=== PATIENT | male | born 1955 | race Caucasian/White ===

== ENCOUNTER 2019-08-05 04:13 | Emergency (ER) | payer MEDICARE ==
[~2019-08-05] VITALS: Ht 177.8 cm; Wt 109.1 kg
[2019-08-05] MEDS ORDERED: TRAV04OPD OP (04:26)
[2019-08-05] MEDS ORDERED: TIMOXEOPD OD (04:26)
[2019-08-05] MEDS ORDERED: METF500T13 PO (04:26)
[2019-08-05] MEDS ORDERED: BYST10TA2 PO (04:26)
[2019-08-05] MEDS ORDERED: NS 1,000 ML IV SCH (04:41)
[2019-08-05] MEDS ORDERED: ONDANSETRON 4MG/2ML VIAL (J2405) IV ONE (04:45)
[2019-08-05] MEDS ORDERED: propofoL 200 MG/20 ML VIAL IV PRN (04:45)
[2019-08-05] MEDS ORDERED: KETAMINE HCL 200 MG/20 ML VIAL IV ONE (04:45)
[2019-08-05] MEDS ORDERED: PROPOFOL 1,000 MG/100 ML VIAL As Ordered ONE (04:51)
[2019-08-05] MEDS ORDERED: MORPHINE 4 MG/ML 1ML VIAL/SYRINGE (J2270) As Ordered ONE (06:15)
[2019-08-05] MEDS ORDERED: MORPHINE 4 MG/ML 1ML VIAL/SYRINGE (J2270) IV PRN (06:15)
[2019-08-05 06:29] VITALS: BP 158/87
[2019-08-05] MEDS ORDERED: PERC5TAB12 PO (07:13)
--- NOTE | 2019-08-05 10:31 | REP ---
RIGHT SHOULDER, COMPLETE: 08/05/2019. Clinical history: Shoulder pain and suspected dislocation clinically. Findings: Anterior inferior dislocation noted on all three views involving femoral head and glenoid. I do not see evidence of a fracture of the humeral head, scapula, clavicle or ribs. There are degenerative changes of the inferior margin of the glenohumeral joint, AC joint and a peripheral acromial spur. Impression: 1. Anterior inferior dislocation of the humerus without visible fracture. Electronically Signed by Art Jimenez MD 08/05/2019 08:20 P
--- NOTE | 2019-08-05 10:31 | REP ---
AP PORTABLE RIGHT SHOULDER: 08/05/2019. Clinical history: Post reduction. Findings: Portable AP and axillary views were obtained. These show a location of the humeral head to the glenoid fossa. Spurring at the AC and glenohumeral joint noted. No fracture. Electronically Signed by Art Jimenez MD 08/05/2019 08:20 P
--- NOTE | 2019-08-06 10:27 | ER ---
DATE OF CONSULTATION: 08/05/2019 CHIEF COMPLAINT: Right shoulder pain. The patient was sent to the emergency room (ER) as a transfer from [facility] complaining of right shoulder pain. He states that he was in [place] when he tripped downstairs and immediately appreciated right shoulder pain, inability to move, that is sharp located globally, right shoulder 10/10, made worse with movement and improved with mobilization. He denies any pain elsewhere, any numbness, tingling, fevers or chills, nausea or vomiting. Stated that he did not want to the hospital in [place]. [place] [facility] where they attempted sedation and closed reduction, were unsuccessful and transferred to [place] subsequently. Denies any fevers, chills, nausea or vomiting. A complete 10-system review was conducted and pertinent positive and negatives in the history of present illness (HPI). All other systems negative. PAST MEDICAL HISTORY: High blood pressure, diabetes, and glaucoma. MEDICATIONS: Bystolic, metformin, atorvastatin, and eye drops. PAST SURGICAL HISTORY: Left knee surgery in 1974, cataract surgery, and hernia surgery. ALLERGIES: PENICILLIN, gets a rash. Denies smoking, was a former smoker. Denies any illicit drug use, and states he is a social drinker. PHYSICAL EXAMINATION: The patient is awake, alert, and oriented, well-dressed. Appropriate affect. Breathing unlabored on room air. Normocephalic and atraumatic. Right upper extremity: Gross deformity to the right shoulder with significant bruising and swelling. Skin intact. Significant ecchymosis. Radial pulses 2+, regular rate. Positive anterior interosseous nerve (AIN), posterior interosseous nerve (PIN) and ulnar motor function. Sensation intact to light touch in superficial sensory branch, radial nerve, median nerve, ulnar nerve, and axillary nerve. No tenderness to palpation about the elbow or wrist or fingers. Left upper extremity: No tenderness to palpation. Full range of motion of shoulder, wrist, and elbow without any pain or discomfort. Skin is intact. Radial pulses 2+ and regular rate. Sensation intact to light touch in superficial sensory branch, radial nerve, median nerve, and ulnar nerve. Positive AIN/PIN and ulnar motor function. Bilateral lower extremities: No tenderness to palpation. Full active range of motion of the hips, knees, and feet. Skin intact. Posterior tibial pulses +2, regular rate. Positive EHL, FHL, tib, gastroc and motor function. Sensation intact to light touch to superficial peroneal, deep peroneal, saphenous, and tibial distributions Imaging reviewed. Right shoulder demonstrating anterior dislocation. DIAGNOSIS: Right shoulder anterior dislocation. I discussed with the patient that this needs to be reduced. I do believe that with appropriate sedation that it will be reduced successfully. The patient agreed. He underwent sedation by the emergency room (ER) staff; at which point, we did a traction and counter-traction maneuver and successful reduced the shoulder, confirmed on repeat films on axillary and AP; at which point, the patient was ranged and shown that with 90 degrees of adduction and external rotation to 45 degrees, the patient started sublux anteriorly again. He was placed in a sling and told to followup with a local orthopedic surgeon, as the patient lives in [place]. I did discuss with the patient that at this age, he does become high risk of rotator cuff tear, therefore, I do recommend followup. The patient expressed understanding and agreement with this plan. He will non-weightbearing right upper extremity and discharged once determined safe determined by the ER staff.
== END 2019-08-05 07:41 | disposition home or self-care (01) ==
LOC: M ED 04:13
DX: S43.004A Unspecified dislocation of right shoulder joint, initial encounter (principal); W10.9XXA Fall (on) (from) unspecified stairs and steps, initial encounter; Y92.099 Unspecified place in other non-institutional residence as the place of occurrence of the external cause; Y93.9 Activity, unspecified; Y99.9 Unspecified external cause status; E11.9 Type 2 diabetes mellitus without complications; I10 Essential (primary) hypertension; Z79.84 Long term (current) use of oral hypoglycemic drugs; Z79.899 Other long term (current) drug therapy; Z88.0 Allergy status to penicillin
CPT/HCPCS: 23655; 73020; 73030; 93041; 96374; 99156; 99285; J2405